=== PATIENT | female | born 1970 | race Caucasian/White ===

== ENCOUNTER 2019-04-03 06:51 | Day surgery (SDC) | payer OTHER ==
[2019-04-03 07:49] LABS: Specific Gravity 1.025 (1.005-1.030)
[2019-04-03] MEDS ORDERED: Ringers Lactate 1,000 ML IV ONE (07:51)
[2019-04-03] MEDS ORDERED: PROPOFOL 200 MG/20 ML VIAL IV ONE (08:00)
[2019-04-03] MEDS ORDERED: FENTANYL CITR 100 MCG/2 ML ONE (08:01)
[2019-04-03] MEDS ORDERED: MIDAZOLAM HCL 2 MG/2 ML INJ ONE (08:01)
[2019-04-03] MEDS ORDERED: LIDOCAINE 1% MPF 2 ML AMPULE ONE (08:04)
[2019-04-03] MEDS ORDERED: LIDOCAINE 1.5% W/EPI AMP 5 ML ONE (08:18)
[2019-04-03] MEDS ORDERED: KETOROLAC 30 MG/ML INJ ONE (09:01)
[2019-04-03] MEDS: MEPERIDINE HCL 50 MG/ML AMP ONE ×2 (09:08→09:19)
[2019-04-03] MEDS ORDERED: IBUPROFEN 200 MG TAB PO ONE (10:32)
[2019-04-03] MEDS ORDERED: IBUPROFEN 400 MG TAB ONE (10:32)
[2019-04-03] MEDS ORDERED: MEPERIDINE HCL 25 MG/0.5 ML ONE (11:18)
--- NOTE | 2019-04-03 19:11 | OP ---
Date of Procedure: 04/03/2019 Surgeon: Shilpa Noonan MD Hiv Cts Specialist: No assistants. Preoperative Diagnoses: Menorrhagia (AUB-O/A) and dysmenorrhea. Postoperative Diagnoses: Menorrhagia (AUB-O/A) and dysmenorrhea. Procedure Performed: Hysteroscopy with endometrial ablation using HTA. Anesthesia: General with LMA. Complications: No complications. Drains: No drains. Specimens: No specimens. Condition: Patient's condition is stable. Findings: The uterus had a large clot inside it. Once the clot was removed, there were no intracavi tary lesions. No cavity distortion. Both tubal ostia were visualized. Excellent ablation effect af ter the ablation was done and the cavity was rinsed out. Indications: Patient is a 48-year-old with control in place. had a vasectomy. She is a 5, para 3-0-2-3, presented with severe bleeding, heavy periods, and dysmenorrhea. She als o has superficial dyspareunia, but no etiology in the abdomen, mostly from atrophy. She does have stage 2 uterine prolapse, but asymptomatic; also rectocele, which is also asymptomatic. We did a transvaginal ultrasound, which did not show any adnexal masses. The lining was 8 mm. Hys teroscopy was performed as an outpatient and endometrial curettings were negative for hyperplasia, at ypia, or malignancy. So, we discussed about the options of this perimenopausal woman about Mirena IU D, ablation, hysterectomy. After discussing the benefits and risks of the procedures, and treatments , we decided on proceeding with the ablation. Bleeding, infection, injury to the uterus, recurrence of bleeding, 90% success at this time and 75% success long-term after 2 to 3 years. Description Of Procedure: She was consented and brought to the OR. Ancef 2 g were given. Patient w as taken back to the OR, placed in supine fashion on the operating table. After general anesthesia w as given, she was placed in a dorsal lithotomy position. Pelvic exam was performed. Uterus was foun d to be slightly enlarged about 8 week size. No adnexal masses were palpable. The vulva, vagina, an d perineum were prepped and draped in a sterile fashion. The anterior lip grasped with 2 Allis clamp s. Diagnostic hysteroscopy was performed with the HTA sheath that was primed. Without any dilation of the cervix, the uterine cavity was entered. The large clot was present. The scope was removed an d gently the clot was teased out with the help of a polyp forceps without carefully making sure there was no further dilation of the internal os. Then, the HTA was reintroduced and the tip of the scope placed in the center of the cavity. After th e cavity was completely rinsed out and free of clots, then the ablation cycle was started. Once the test cycle was done, there was no leak, then started the entire heating cycle, the 10 minutes ablatio n cycle and 1.5 minutes cooling cycles were conducted without any interruptions. Then, diagnostic hy steroscopy was performed to rinsed out the cavity. Then, made sure that the cavity had a good ablati on and at the end, scope removed. The Ray-Tecs packed in the posterior fornix were all removed. Ins trument, needle, and sponge counts were done and were correct at the end of the case. EBL was minima l. She will follow up with me in 3 weeks. JIMMY/ARIANE Voice ID: [id number] Report ID: [id number]
== END 2019-04-03 11:40 | disposition home or self-care (01) ==
LOC: OR 06:51
PROVIDERS: ATTEND Obstetrics & Gynecology
PROC: 0U5B8ZZ Destruction of Endometrium, Via Natural or Artificial Opening Endoscopic (ICD-10-PCS; principal; 2019-04-03 08:30)
DX: N92.1 Excessive and frequent menstruation with irregular cycle (principal); N94.6 Dysmenorrhea, unspecified; N81.2 Incomplete uterovaginal prolapse; N94.11 Superficial (introital) dyspareunia; I10 Essential (primary) hypertension; F33.2 Major depressive disorder, recurrent severe without psychotic features; Z79.899 Other long term (current) drug therapy
CPT/HCPCS: 81025; J2001; J2175; J2250; J2704; J3010

== ENCOUNTER 2020-08-25 10:05 | Day surgery (SDC) | payer OTHER ==
[2020-08-19 10:26] LABS: Absolute Lymphocytes (CBC) 1.1 K/uL (0.7-4.9); Basophils % 0.8 % (0-1.3); Hematocrit 41.5 % (36.0-45.0); Lymphocytes % 17.5 % (15.3-44.8); MPV 7.2 fL (7.6-11.3); RBC Red Blood Cell Count 4.59 M/uL (3.86-4.86)
[2020-08-19 11:12] LABS: Urine Appearance CLEAR; Urine Bilirubin NEGATIVE (NEG); Urine Blood NEGATIVE (NEG); Urine Color YELLOW; Urine Glucose NEGATIVE (NEG); Urine Protein NEGATIVE (NEG)
[2020-08-19 11:37] LABS: Urine Microscopic Reflex NO UMIC
[2020-08-25] MEDS ORDERED: Ringers Lactate 1,000 ML IV ONE ×5 (10:42→18:39)
[2020-08-25] MEDS ORDERED: CEFAZOLIN/SWI 1gm 1 GM/10 ML SYR ONE ×2 (10:42→12:28)
[2020-08-25] MEDS ORDERED: SCOPOLAMINE HYDROBROMIDE PATCH TD ONE (10:42)
[2020-08-25] MEDS ORDERED: CEFAZOLIN/SWI 2gm 2 GM/20 ML SYR ONE (10:42)
[2020-08-25] MEDS ORDERED: KETAMINE HCL 500 MG/5 ML VIAL ONE (11:45)
[2020-08-25] MEDS ORDERED: FENTANYL CITR 250 MCG/5 ML ONE (11:45)
[2020-08-25] MEDS ORDERED: MIDAZOLAM HCL 2 MG/2 ML INJ ONE ×2 (11:45→18:39)
[2020-08-25] MEDS ORDERED: LIDOCAINE 2% MPF 5 ML VIAL ONE (11:45)
[2020-08-25] MEDS ORDERED: ROCURONIUM 50 MG/5 ML VIAL IV ONE ×2 (11:45→15:41)
[2020-08-25] MEDS ORDERED: dexAMETHasone 10 MG/ML VIAL ONE (11:45)
[2020-08-25] MEDS ORDERED: propofoL 200 MG/20 ML VIAL IV ONE (11:45)
[2020-08-25] MEDS ORDERED: ONDANSETRON 4 MG/2 ML VIAL ONE ×2 (11:55→18:13)
[2020-08-25] MEDS ORDERED: VASOPRESSIN 20 UNIT/ML VIAL ONE ×2 (12:28→12:52)
[2020-08-25] MEDS ORDERED: NA CHLORIDE 0.9% 100 ML IV ONE (12:28)
[2020-08-25] MEDS ORDERED: BUPIVACAINE 0.25% PF 30 ML VIAL ONE (12:28)
[2020-08-25] MEDS ORDERED: GLYCOPYRROLATE 0.2 MG/ML SYR ONE ×2 (13:42→15:42)
[2020-08-25] MEDS ORDERED: HYDRALAZINE HCL 20 MG/ML VIAL ONE (14:11)
[2020-08-25] MEDS ORDERED: NEOSTIGMINE 1 MG/ML -5 ML ONE (15:43)
[2020-08-25] MEDS ORDERED: EPHEDRINE SULF 50 MG/ML VIAL ONE (16:28)
[2020-08-25] MEDS ORDERED: MORPHINE 10 MG/ML VIAL ONE (16:46)
[2020-08-25] MEDS ORDERED: KETOROLAC 30 MG/ML INJ ONE (17:49)
[2020-08-25] MEDS: HYDROMORPHONE HCL 1 MG/ML INJ ONE ×4 (18:00→18:21)
[2020-08-25] MEDS ORDERED: MEPERIDINE HCL 25 MG/ML SYR ONE ×2 (18:27→18:34)
[2020-08-25 19:18] VITALS: BP 139/81; TEMP 97.1
[2020-08-25] MEDS ORDERED: HYDROCODONE/APAP 5/325 MG TAB ONE (19:40)
[2020-08-25] MEDS ORDERED: IBUPROFEN 600 MG TAB PO ONE (19:46)
[2020-08-25] MEDS ORDERED: IBUPROFEN 200 MG TAB PO ONE (19:57)
[2020-08-25] MEDS ORDERED: IBUPROFEN 400 MG TAB ONE (19:57)
[2020-08-25] MEDS ORDERED: HYDROCODONE/APAP 5/325 MG TAB PO ONE (20:15)
[2020-08-25 20:46] VITALS: O2SAT 98
--- NOTE | 2020-09-26 00:30 | OP ---
Date of Procedure: 08/25/2020 Surgeon: Shilpa Noonan MD Program Engagement Director: Daly Munoz. Preoperative Diagnoses: Uterine prolapse, dyspareunia, rectocele stage II. Postoperative Diagnoses: Stage II posterior wall defect, incomplete uterovaginal prolapse, dyspareun ia, history of ablation, and menorrhagia. Procedures Performed: 1.Total laparoscopic hysterectomy, bilateral salpingo-oophorectomy. 2.Uterosacral ligament suspension, colpopexy and cystoscopy. 3.Rectocele repair and perineal body repair under the rectocele and (site-specific posterior wall re pair). Anesthesia: General endotracheal. Ebl: 100. Urine Output: 400. Findings: Pop-Q -2, -2, -4, 5, moderate 7, -1, 0, -4, retroflexed uterus, ablated cavity. Condition: Stable patient. Brief History And Physical: The patient is a 50-year-old with history of menorrhagia, underwent an a blation, complaining of dyspareunia with intercourse and vaginal bulge symptoms. On examination, fou nd to have incomplete uterovaginal prolapse, significant posterior wall defect followed by apical def ect, so discussed about all the benefits and risks, and options available. Transvaginal ultrasound w as performed. No evidence of any endometrial abnormality. After full evaluation, she was counseled on observation with Kegel and physical therapy, the use of pessary and surgical options. After under standing the benefits and risks of all the procedures and recovery, she wanted to proceed with hyster ectomy and prolapse repair. We discussed about either vaginal laparoscopic repairs and uterosacral s uspension was recommended in conjunction with the posterior repair. If this was not feasible, she wa s consented for a sacrospinous fixation with a posterior repair. Description Of Procedure: After informed consent was verified, she was taken back to OR. 2 g of Anc ef were given. She was placed in a dorsal lithotomy position. Pelvic exam was performed. Pop-Q as dictated above. Abdomen, vulva, vagina, and perineum prepped and draped in a sterile fashion. Arguelles placed to drain the bladder and attached for retrograde filling. A large VCare introduced. Attempt ed to be introduced into the uterus. This was difficult because of the ablated cavity. Then had to wait on incision of the manipulator, went down. Laparoscopically 1 cm infraumbilical incision was made with a scalpel using the open laparoscopy tech nique. Fascia was incised and tagged with 0 Vicryl. Peritoneum entered. S retractor was placed. H asson was introduced. After insufflation, site of entry was checked and it was unremarkable. Ten taylor prapubic, two 5 ports left and right lower quadrant were placed under direct vision after visualizati on of the sigmoid colon and visualization of the uterosacral distal aspects. The epiploicae of the b owel was threaded with 3-0 Monocryl and this was retracted with Malcolm-Alejandro needle in the left up per quadrant and held with a hemostat for retraction. This was to keep this out of the way in the op erative field. LigaSure was taken and both ureters were traced and the course was from the pelvic brim to the ureter ic tunnel and no distortion. The utero-ovarian ligament, mesosalpinx, round ligament were taken down . Broad ligament was opened up to raise the bladder flap. Posteriorly it was taken down to the leve l of the distal cuff. The uterosacral ligaments were well visualized. The right one was more promin ent than the left side. However, this was well visualized, so plan was to perform a uterosacral susp ension. Then went on the opposite side and took down in the similar fashion the utero-ovarian ligament, mesos alpinx, tube, round ligament, and anterior connected the bladder flap and posteriorly connected the p eritoneum. We skeletonized the broad ligament and exposed the vessels. Bladder was dissected inferi gen on the anterior vaginal wall, precervical fascia, and exposing the connective tissue. Then, wit h a monopolar, parallel cut was made between the cervix and the vessels, then the bipolar basket tip was used to cauterize these and taken down with the help of the LigaSure. Then, the cardinal ligamen ts were taken down with the help of the LigaSure as well. Opposite side similar dissection was perfo rmed and circumferential colpotomy with a monopolar hook blade and the specimen pulled out through th e vagina. The ovaries and tubes were taken with the help of the LigaSure and handed off for specimen . Thorough irrigation and suction was performed. The vaginal closure was done with the help of simple sutures at both ends and 3 [id number]-ir-izwxa in the center. 0 PDS sutures were used. Then once the ureters were visualized, the distal uterosacrals were visualized, at least 5 cm above t he insertion of the uterosacral. The uterosacral was picked up with the help of a 3-0 Monocryl sutur e just for retraction and then Clinton-Mustapha suture on C1 was taken and the uterosacral was sutured from i nside from medial to lateral, then from lateral to medial. Then, the suture was taken through the po sterior vaginal cuff connective tissue, which is rectovaginal septum and then through the anterior wa ll connective tissue. This was then held on a hemostat through the lateral port. The other suture w as taken slightly more proximal to this and then this was sutured medial to the suture that was place d first, which was placed immediately next to the angle. Both sutures were then tied down without any suture bridges. There was good apposition and the utero sacral was pulled up to the vaginal cuff. Then stay suture was taken out and 3-0 Monocryl was placed on the left uterosacral and once this was done, no evidence of any pooling of the ureters becuase I stayed proximal to the distal attachment. Similar Clinton-Mustapha sutures were placed, 1 in the distal part going to the lateral aspect of the cuff an d then the proximal one in the medial aspect both attaching to the anterior and posterior fascial lay ers. These were tied without suture bridges as well and there was excellent suspension and obliterat ion of the posterior cul-de-sac as well. Then cystoscopy was performed. After a 17-Estonian sheath, 30 degree lens, normal saline was placed after Arguelles was removed with excel lent jets of urine from both ureteric orifices. No evidence of any trauma or foreign body here. So, the cystoscope was removed and Arguelles was replaced. Gloves were changed and went back up laparoscopi anna. Thorough irrigation and suction were performed. All trocars were removed under direct vision and fascia and skin were injected with 0.25% Marcaine both the entry and exit for local anesthesia. The umbilicus fascial incision after desufflation was closed with the help of the tagged 0 Vicryl sut ures attached to each other and a simple 0 Vicryl suture at the fascia in the suprapubic area. All s kin incisions with interrupted 4-0 Vicryl and Steri-Strips placed in the epiploicae were released and there was no evidence of any bleeding or any trauma to the sigmoid wall. All skin incisions were cl osed. Then, I went down vaginally, left the Arguelles in place. Posterior vaginal wall was examined carefully. The site-specific defect was in the right lateral aspect and this was well visualized. This was al l palpated. Then a lillian-shaped skin incision was made in the vaginal epithelium in the distal tushar f after injecting dilute vasopressin on the perineal body as well as in the distal posterior wall. A lmost in the distal 2/3 injection was performed with the incision in the distal half. Vaginal epithe lium, sub epithelium was traced off the underlying connective tissue leaving as much as possible and perineal body was also well cleaned up and the vaginal epithelial flaps were raised to perform dissec tion off the rectovaginal septum almost above the level of the epithelial incision on the central ape x and then posterior enterocele was seen to some extent. This was closed with a pursestring 3-0 [place] cryl suture. Then, the site-specific defect was repaired with the help of a 2-0 PDS in a continuous running fashion bringing in and reattaching the shredded edges together, then coming down to the left of the perineal body. The perineal body was reconstructed with the help of 2-0 PDS as well going fr om side to side then bringing the body together. The other 2-0 Vicryl interrupted suture was placed distally. Once this was done rectovaginally, this was confirmed. Gloves were changed and then the 2 -0 PDS suture was run up on the left lateral aspect and tied here to bury this knot. Then, the epith elial edges were brought together with the help of Karey to make sure that there was good patency of the canal without any narrowing. Once this was done, slightly trimmed edges were then sutured togeth er with the help of a 2-0 Vicryl in a continuous running horizontal mattress fashion. The perineum w as also sutured with a 3-0 Vicryl in a subcutaneous and subcuticular fashion. There was excellent re construction without any narrowing or suturing the levators. Vaginal packing was done. Rectal exam was negative. Arguelles was left in place. Instrument, needle, a nd sponge counts were correct at the end of the case. The patient tolerated the procedure well and she was recovered from anesthesia and taken to the PACU in stable condition. JIMMY/ARIANE Voice ID: [id number] Report ID: [id number]
== END 2020-08-25 20:43 | disposition home or self-care (01) ==
LOC: OR 10:05
PROVIDERS: ATTEND Obstetrics & Gynecology
PROC: 0UT24ZZ Resection of Bilateral Ovaries, Percutaneous Endoscopic Approach (ICD-10-PCS; 2020-08-25)
PROC: 0UT74ZZ Resection of Bilateral Fallopian Tubes, Percutaneous Endoscopic Approach (ICD-10-PCS; 2020-08-25)
PROC: 0USG4ZZ Reposition Vagina, Percutaneous Endoscopic Approach (ICD-10-PCS; 2020-08-25)
PROC: 0JQC0ZZ Repair Pelvic Region Subcutaneous Tissue and Fascia, Open Approach (ICD-10-PCS; 2020-08-25)
PROC: 0WQNXZZ Repair Female Perineum, External Approach (ICD-10-PCS; 2020-08-25)
PROC: 0UT94ZZ Resection of Uterus, Percutaneous Endoscopic Approach (ICD-10-PCS; principal; 2020-08-25 11:30)
DX: N81.2 Incomplete uterovaginal prolapse (principal); N95.1 Menopausal and female climacteric states; N92.1 Excessive and frequent menstruation with irregular cycle; N39.3 Stress incontinence (female) (male); F32.9 Major depressive disorder, single episode, unspecified; D63.8 Anemia in other chronic diseases classified elsewhere; Z98.84 Bariatric surgery status; Z20.828 Contact with and (suspected) exposure to other viral communicable diseases; I10 Essential (primary) hypertension
CPT/HCPCS: 58571; 57425; 85025; 36415; 86900; 86850; 81025; 86901; 88305; 81003; 57250; U0002; J0360; J2704; J2250 ×2; J3010; J1100; J2175 ×2; J1170 ×2; J2710; J0690 ×2; J7120 ×4; J2405 ×2; 88307

== ENCOUNTER 2021-06-09 08:35 | Day surgery (SDC) | payer OTHER ==
[2021-06-04 16:36] LABS: Absolute Lymphocytes (CBC) 1.2 K/uL (0.7-4.9); Basophils % 0.6 % (0-1.3); Hematocrit 38.5 % (36.0-45.0); Lymphocytes % 15.6 % (15.3-44.8); RBC Red Blood Cell Count 4.36 M/uL (3.86-4.86)
[2021-06-04 17:16] LABS: Potassium 3.9 mmol/L (3.5-5.1)
[2021-06-09 08:55] LABS: Specific Gravity 1.015 (1.005-1.030)
[2021-06-09] MEDS ORDERED: Ringers Lactate 1,000 ML IV ONE ×2 (09:17→14:09)
[2021-06-09] MEDS ORDERED: CEFAZOLIN 2 GM IN 0.9% NACL 2 GM/100 ML BAG ONE (09:47)
[2021-06-09] MEDS ORDERED: FENTANYL CITR 100 MCG/2 ML ONE ×3 (12:43→14:31)
[2021-06-09] MEDS ORDERED: propofoL 200 MG/20 ML VIAL IV ONE (12:43)
[2021-06-09] MEDS ORDERED: ROCURONIUM 50 MG/5 ML VIAL IV ONE ×2 (12:44→14:06)
[2021-06-09] MEDS ORDERED: MIDAZOLAM HCL 2 MG/2 ML INJ ONE (12:44)
[2021-06-09] MEDS ORDERED: LIDOCAINE 1% MPF 5 ML VIAL ONE (12:44)
[2021-06-09] MEDS ORDERED: LIDOCAINE JELLY 2%- 5 ML TUBE ONE (13:01)
[2021-06-09] MEDS ORDERED: BUPIVACAINE 0.25% PF 30 ML VIAL ONE (13:19)
[2021-06-09] MEDS ORDERED: dexAMETHasone 10 MG/ML VIAL ONE (13:31)
[2021-06-09] MEDS ORDERED: GLYCOPYRROLATE 0.2 MG/ML SYR ONE (13:31)
[2021-06-09] MEDS ORDERED: KETOROLAC 30 MG/ML INJ ONE (13:31)
--- NOTE | 2021-06-09 14:04 | P.OP ---
Preoperative diagnosis: Recurrent Ventral Incisional Hernia Postoperative diagnosis: Recurrent Ventral Incisional Hernia Primary procedure: Laparoscopic Ventral Hernia Repair with Mesh Secondary procedure: Laparoscopic Adhesiolysis > 1 hour Anesthesia: GETA Local Estimated blood loss: <10cc Specimen: none Findings: 14cm x 7 cm Recurrent Ventral Incisional Hernia Complications: None Implants: Bard Ventralite Mesh with Echo position 20cm x 15cm Transferred to: Recovery Room Condition: Good
[2021-06-09] MEDS ORDERED: ONDANSETRON 4 MG/2 ML VIAL ONE (14:06)
[2021-06-09] MEDS ORDERED: NEOSTIGMINE 1 MG/ML -5 ML ONE (14:06)
[2021-06-09] MEDS: HYDROMORPHONE HCL 1 MG/ML INJ ONE ×2 (14:24→14:31)
--- NOTE | 2021-06-09 14:40 | OP ---
Date of Procedure: 06/09/2021 Surgeon: Brad Singer MD, Preoperative Diagnosis: Recurrent ventral incisional hernia. Postoperative Diagnosis: Recurrent ventral incisional hernia. Procedures Performed: 1.Laparoscopic ventral hernia repair with mesh. 2.Laparoscopic adhesiolysis greater than 1 hour. Anesthesia: General endotracheal plus local with 0.25% Marcaine without epinephrine. Estimated Blood Loss: Less than 10 mL. Specimen: None. Findings: A 14 cm x 7 cm recurrent ventral incisional hernia with a [place]er-cheese appearance to the a bdominal wall. The patient appeared to have a primary repair before in the past with sutures still v isible in the midline surgical field. Complications: None. Implants: Bard Ventralight mesh with Echo Positioning system approximately 20 cm oval by 15 cm mesh utilized. Disposition: The patient was transferred to recovery room in good condition. Procedure In Detail: After informed consent was obtained, the patient was brought to the operating r oom, prepped and draped in the usual sterile fashion after adequate anesthesia was achieved. The are a on the left upper quadrant was anesthetized with 0.25% Marcaine, sharply incised, and a 5 mm 0-degr ee optical trocar was introduced in the abdomen without evidence of complication. Insufflation was o btained to 15 mmHg at this time. There was no injury vital structures upon entry into the abdomen. The abdomen was inspected at this point and found significant intraabdominal adhesions and significan t herniation with incarceration of omental fat into the midline hernia defects which were multiple, S wiss-cheese appearance in the midline. Additional trocar site was placed in left lower quadrant. Th is was similarly anesthetized and sharply incised. A 5 mm trocar was placed under direct visualizati on without evidence of complication. The left upper quadrant was then up-sized to a [address] visualization without evidence of complication. I then used a combination of blunt and extraabdom inal pressure as well as LigaSure device to return the omental fat to the normal anatomic position. This adhesiolysis took approximately 1 hour to mobilize all of the omentum attachments from the anter ior abdominal wall and from the hernia sac itself, which were incarcerated at this point. After the intraabdominal contents returned to the normal anatomic position, the area was inspected and the abdo karlos wall found to have a [place]er-cheese appearance approximately 14 cm near the midline by approximat bert 4-6 cm laterally. At this point, I sized the mesh appropriately and placed on the back table, wh ich was found to be a Bard Ventralight mesh with Echo Positioning system of approximately 20 cm oval. This was prepared. At this point, I brought the Endo Stitch with V-Loc and ran 2 V-Loc sutures to close the midline defect in a running fashion with the V-Loc suture with good apposition of the abdom inal wall. At this point, I then brought the mesh into the abdominal wall and centralized over the a bdominal cavity over the midpoint of the hernia defect. At this point, the balloon deployment system was utilized to open the mesh in its entirety. It was aligned properly in the long axis and then I secured to the anterior abdominal wall using absorbable fixation tack system. I then removed the bal loon. System was found to be intact on the back table. I then placed a double crown of absorbable f ixation tacks to the anterior abdominal wall and then secured the remaining mesh to the anterior abdo karlos wall with remaining tacks. Approximately 90 tacks were used to secure to the anterior bowel wa ll with good apposition of the mesh to the abdominal wall. At this point, I then inspected the abdom en. There were no hemostatic maneuvers required at this point. I then closed the left upper quadran t 12 mm defect using a Malcolm-Alejandro suture passer with 0 Vicryl in interrupted fashion with good a pproximation tissues. The abdomen was completely desufflated under direct visualization without evid ence of complication. Remaining trocars were removed. All skin incisions were copiously irrigated a nd closed with 4-0 Monocryl in a running fashion. Dermabond placed over top. The patient tolerated the procedure well without evidence of complication and transferred to PACU in good condition. All counts were correct at the end of the case. TK/MODL Voice ID: [id number] Report ID: [id number]
[2021-06-09] MEDS: MIDAZOLAM HCL 2 MG/2 ML INJ ONE ×2 (14:43→14:49)
[2021-06-09] MEDS: FENTANYL CITR 100 MCG/2 ML ONE ×2 (14:57→15:03)
[2021-06-09] MEDS ORDERED: HYDROMORPHONE HCL 1 MG/ML INJ ONE (15:06)
[2021-06-09] MEDS ORDERED: PROMETHAZINE INJ 25 MG/ML AMP ONE (15:38)
[2021-06-09 16:32] VITALS: O2SAT 100
[2021-06-09] MEDS ORDERED: HYDROCODONE/APAP 7.5/325 MG TAB ONE ×2 (16:40→17:51)
[2021-06-09] MEDS ORDERED: DIPHENHYDRAMINE 50 MG/ML VIAL ONE (16:40)
[2021-06-09 17:38] VITALS: TEMP 98.1
[2021-06-09 17:40] VITALS: BP 147/54
== END 2021-06-09 17:40 | disposition home or self-care (01) ==
LOC: OR 08:35
PROVIDERS: ATTEND Surgery
PROC: 0DNU4ZZ Release Omentum, Percutaneous Endoscopic Approach (ICD-10-PCS; 2021-06-09)
PROC: 0WUF4JZ Supplement Abdominal Wall with Synthetic Substitute, Percutaneous Endoscopic Approach (ICD-10-PCS; principal; 2021-06-09 10:15)
DX: K43.2 Incisional hernia without obstruction or gangrene (principal); Z20.822 Contact with and (suspected) exposure to COVID-19
CPT/HCPCS: 85025; 80048; 36415; 81025; 49652; 49329; U0003; J2704; J2550; J1200; J2250 ×2; J3010 ×4; J1100; J1170 ×2; J2710; J0690; J7120 ×2; J2405

== ENCOUNTER 2024-03-20 00:53 | Emergency (ER) | payer OTHER ==
--- OUTSIDE RECORDS SUMMARY | 2024-03-20 00:56 | XMS REPORT | Continuity of Care Document ---
Author Name Unknown Address [address] [facility] [address] [place] [address] [facility] Address [address] [facility] [address] [place] [address] Care Team Providers Care Machine Shop Supervisor Name Role Phone [email or web address] Attending Clinician ANNA Maher Attending Clinician FLORES Chavira Attending Clinician KENYA Angulo Attending Clinician Unabraulio ilsharita [email or web address] Admitting Clinician Dorinda hubbard Payers Payer Name Policy Type Policy Number Effective Date Expirati on Date Source [employer] 2 [id number] 2022 00:00:00 Problems Condition Name Condition Details Condition Category Status Onset Date Resolution Date Last Treatment Date Treating Clinician Comments Source Primary hypertensi on Primary hypertensi on Disease Active 11-02 00:00: 00 Ginger amador Well adult exam Well adult exam Disease Active 11-02 00:00: 00 Ginger amador Depression with anxiety Depression with anxiety Disease Active 11-02 00:00: 00 Overview: Formattin g of this note might be different from the original. PSYC Dr. Armida amador Primary insomnia Primary insomnia Disease Active 11-02 00:00: 00 Overview: Formattin g of this note might be different from the original. PSYC Dr. Armida Ginger Seybold - Externa l Class 3 severe obesity due to excess calories with serious comorbidit y and body mass index (BMI) of 40.0 to 44.9 in adult Class 3 severe obesity due to excess calories with serious comorbidit y and body mass index (BMI) of 40.0 to 44.9 in adult Disease Active 11-02 00:00: 00 Ginger amador History of gastric bypass History of gastric bypass Disease Active 09-11 00:00: 00 Ginger amador Social History Social Habit Start Date Stop Date Quantity Comments Source History of tobacco use Smoker Ginger Bhatti Alcohol intake 2022-11-02 00:00:00 2022-11-02 00:00:00 Ex-drinker (finding) Ginger Bhatti Education 2022-11-02 00:00:00 2022-11-02 00:00:00 13 Ginger Bhatti Cigarettes smoked current (pack per day) - Reported 2022-11-02 00:00:00 2022-11-02 00:00:00 Ginger Bhatti Cigarette pack-years 2022-11-02 00:00:00 2022-11-02 00:00:00 iGnger Bhatti Tobacco use and exposure 2022-11-02 00:00:00 2022-11-02 00:00:00 Smokeless tobacco non-user Ginger Bhatti Sex Ass[birth year] At 1970 00:00:00 1970 00:00:00 Ginger Bhatti Smoking Status Start Date Stop Date Source Ex-smoker 2022-11-02 00:00:00 2022-11-02 00:00:00 Noam Fung External Medications Ordered Medication Name Filled Medication Name Start Date Stop Date Current Medication? Ordering Clinician Indication Dosage Frequency Signature (SIG) Comments Components Source Methotrexat e 7.5 MG/0.3ML subcutaneou s Solution Prefilled Syringe 11-02 14:49: 49 11-02 00:00 :00 No Inject into the skin Ginger amador Lamotrigine 100 MG oral Tablet 11-02 14:45: 13 Yes 100mg Take 100 mg by mouth daily Ginger amador Sertraline HCl 50 MG oral Tablet 11-02 14:45: 13 Yes 50mg Take 50 mg by mouth daily Ginger amador Bupropion HCL XL 300 MG OR TB24 11-02 14:45: 13 Yes 300mg Take 300 mg by mouth daily Ginger amador Zolpidem Tartrate 10 MG oral Tablet 11-02 14:45: 13 Yes 10mg QD Take 10 mg by mouth nightly as needed Ginger amador Desvenlafax ine Succinate ER 25 MG oral TABLET SR 24 HR 11-02 14:45: 13 Yes 1{tbl} Take 1 tablet by mouth daily Ginger amador Folic Acid 20 MG oral Capsule 11-02 14:45: 13 Yes 1{capsu le} Take 1 capsule by mouth daily Ginger amador Losartan Potassium (COZAAR) 100 MG oral Tablet 11-02 00:00: 00 Yes [id number] 100mg Take 1 tablet (100 mg total) by mouth daily Ginger amador Losartan Potassium (COZAAR) 100 MG oral Tablet 10-25 00:00: 00 11-02 00:00 :00 No [id number] 100mg Take 1 tablet (100 mg total) by mouth daily Ginger amador Vital Signs Vital Name Observation Time Observation Value Comments S ource Systolic blood pressure 2022-11-02 20:40:00 132 mm[Hg] Ginger null - External Diastolic blood pressure 2022-11-02 20:40:00 81 mm[Hg] Ginger null - External Heart rate 2022-11-02 20:40:00 79 /min Jam Centeno - External Body temperature 2022-11-02 20:40:00 36.89 Lizet Ginger Centeno - External Respiratory rate 2022-11-02 20:40:00 14 /min Ginger Centeno - External Body height 2022-11-02 20:40:00 160 cm Sarah Centeno - External Body weight 2022-11-02 20:40:00 110.768 kg Sarah galindo Seybold - External BMI 2022-11-02 20:40:00 43.26 kg/m2 Sarah ey Seybold - External Oxygen saturation in Arterial blood by Pulse oximetry 2022-11-02 20:40:00 99 /min Ginger Almanza ld - External Encounters Start Date/Time End Date/Time Encounter Type Admission Type Attending [facility] Care Department Encounter ID Source 2023-07-11 00:00:00 2023-07-11 00:00:00 Outpatient [email or web address] [email or web address]_S [facility] [id number] [facility] 2023-05-02 10:00:00 2023-05-02 10:00:00 [id number]:00 2023-01-30 00:00:00 Outpatient ANNA ROTH [id number] [facility] rashel 2022-12-30 00:00:00 2022-12-30 00:00:00 Outpatient ANNA ROTH [id number] [facility] 2022-11-10 00:00:00 2022-11-10 00:00:00 Outpatient ANNA ROTH [id number] [facility] 2022-11-09 00:00:00 2022-11-09 00:00:00 Outpatient ANNA ROTH [id number] [facility] rashel 2022-11-03 00:00:00 2022-11-03 00:00:00 Outpatient ANNA ROTH [id number] [facility] rashel 2022-11-02 14:45:00 2022-11-02 14:45:00 Outpatient ANNA ROTH [id number] [facility] Jaimerashel 2022-10-25 10:45:00 2022-10-25 10:45:00 Outpatient FLORES BONILLA [id number] [facility] Centeno 2022-10-24 00:00:00 2022-10-24 00:00:00 Outpatient KENYA STRICKLAND [id number] [facility]
[2024-03-20] MEDS ORDERED: LIDOCAINE VISCOUS 2% 10ML ORAL SOLN ONE (01:23)
--- NOTE | 2024-03-20 02:09 | ER ---
Nurse's Notes [facility] Name: Valentina Barton Age: 53 yrs Sex: Female : 1970 Arrival Date: 03/20/2024 Time: 00:53 Bed 17 Private MD: Diagnosis: Foreign body (insect) in the right ear canal, removal by physician Presentation: 03/20 01:31 Chief complaint: Patient states: have a bug in ear. Coronavirus screen: Client denies vc1 travel out of the [place] in the last 14 days. At this time, the client does not indicate any symptoms associated with coronavirus-19. Ebola Screen: Patient negative for fever greater than or equal to 101.5 degrees Fahrenheit, and additional compatible Ebola Virus Disease symptoms Patient denies exposure to infectious person. Patient denies travel to an Ebola-affected area in the 21 days before illness onset. No symptoms or risks identified at this time. Initial Sepsis Screen: Does the patient meet any 2 criteria? No. Patient's initial sepsis screen is negative. Does the patient have a suspected source of infection? No. Patient's initial sepsis screen is negative. Risk Assessment: Do you want to hurt yourself or someone else? Patient reports no desire to harm self or others. Onset of symptoms was March 20, 2024. 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 - Infectious Disease History:: Denies. - Social history:: Smoking status: Patient denies any tobacco usage or history of. Screenin:44 [facility] ED Fall Risk Assessment (Adult) History of falling in the last 3 months, vc1 including since admission No falls in past 3 months (0 pts) Confusion or Disorientation No (0 pts) Intoxicated or Sedated No (0 pts) Impaired Gait No (0 pts) Mobility Assist Device Used No (0 pt) Altered Elimination No (0 pt) Score/Fall Risk Level 0 - 2 = Low Risk Oriented to surroundings, Maintained a safe environment, Educated pt \T\ family on fall prevention, incl call for assistance when getting out of bed. Abuse screen: Denies threats or abuse. Nutritional screening: No deficits noted. Tuberculosis screening: No symptoms or risk factors identified. Assessment: 02:04 General: Appears uncomfortable, Behavior is calm, cooperative, appropriate for age. cp4 Pain: Denies pain. EENT: Reports bug in ear.. Vital Signs: 01:31 BP 177 / 76; Pulse 105; Resp 36; Pulse Ox 99% ; Pain 10/10; vc1 02:18 BP 139 / 68; Pulse 80; Resp 18; Pulse Ox 98% ; cp4 01:31 Pain Scale: Adult vc1 ED Course: 00:56 Patient arrived in ED. rg4 01:21 Lei Medellin MD is Attending Physician. sp3 01:26 Kacie Gustafson is Primary Nurse. cp4 01:34 Triage completed. vc1 02:04 Bed in low position. Call light in reach. Side rails up X 1. Provided Education on: cp4 foreign body in ear.. 02:04 No provider procedures requiring assistance completed. Patient did not have IV access cp4 during this emergency room visit. 02:20 Arm band placed on right wrist. Patient placed in waiting room. cp4 Administered Medications: 01:26 Drug: Viscous Lidocaine Mucous Membrane Liquid (4 %) 10 ml Mucous Membrane once; In cp4 affected ear canal Route: Mucous Membrane; Medication: 02:04 VIS not applicable for this client. cp4 Outcome: 02:09 Discharge ordered by . sp3 02:19 Discharged to home ambulatory, cp4 02:19 Condition: stable 02:19 Discharge instructions given to patient, Instructed on discharge instructions, follow up and referral plans. medication usage, Demonstrated understanding of instructions, follow-up care, medications, Prescriptions given X 1, 02:20 Patient left the ED. cp4 Signatures: Magui Barrientos rg4 Lei Medellin MD MD sp3 Marcie Kerns RN RN vc1 Kacie Gustafson cp4
--- NOTE | 2024-03-20 02:10 | EDPHYS ---
Physician Documentation [facility] Name: Valentina Barton Age: 53 yrs Sex: Female : 1970 Arrival Date: 03/20/2024 Time: 00:53 Bed 17 Private MD: ED Physician Lei Medellin HPI: 03/20 01:35 This 53 yrs old Female presents to ER via Ambulatory with complaints of Foreign Body In sp3 Ear. 01:35 53-year-old female with no significant past medical history presents with probable sp3 insect in right auditory canal that occurred just prior to arrival and awoke her from sleep. No prior history of any medical process in the right ear. Patient feels like the insect is alive. ROS negative for fever, head injury, significant pain, discharge, or any other signs or symptoms on ROS at this time.. 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 - Infectious Disease History:: Denies. - Social history:: Smoking status: Patient denies any tobacco usage or history of. ROS: 01:36 Constitutional: Negative for fever, chills, and weight loss, Eyes: Negative for injury, sp3 pain, redness, and discharge, Neck: Negative for injury, pain, and swelling, Cardiovascular: Negative for chest pain, palpitations, and edema, Respiratory: Negative for shortness of breath, cough, wheezing, and pleuritic chest pain, Abdomen/GI: Negative for abdominal pain, nausea, vomiting, diarrhea, and constipation, Back: Negative for injury and pain, MS/Extremity: Negative for injury and deformity, Skin: Negative for injury, rash, and discoloration, Neuro: Negative for headache, weakness, numbness, tingling, and seizure, Psych: Negative for depression, anxiety, suicide ideation, homicidal ideation, and hallucinations, Allergy/Immunology: Negative for hives, rash, and allergies, Endocrine: Negative for neck swelling, polydipsia, polyuria, polyphagia, and marked weight changes, Hematologic/Lymphatic: Negative for swollen nodes, abnormal bleeding, and unusual bruising, 01:36 All other systems are negative, Exam: 01:36 Constitutional: This is a well developed, well nourished patient who is awake, alert, sp3 and in no acute distress. Head/Face: Normocephalic, atraumatic. Eyes: Pupils equal round and reactive to light, extra-ocular motions intact. Lids and lashes normal. Conjunctiva and sclera are non-icteric and not injected. Cornea within normal limits. Periorbital areas with no swelling, redness, or edema. Neck: Trachea midline, no thyromegaly or masses palpated, and no cervical lymphadenopathy. Supple, full range of motion without nuchal rigidity, or vertebral point tenderness. No Meningismus. Chest/axilla: Normal chest wall appearance and motion. Nontender with no deformity. No lesions are appreciated. Cardiovascular: Regular rate and rhythm with a normal S1 and S2. No gallops, murmurs, or rubs. Normal PMI, no JVD. No pulse deficits. Respiratory: Lungs have equal breath sounds bilaterally, clear to auscultation and percussion. No rales, rhonchi or wheezes noted. No increased work of breathing, no retractions or nasal flaring. Abdomen/GI: Soft, non-tender, with normal bowel sounds. No distension or tympany. No guarding or rebound. No evidence of tenderness throughout. Back: No spinal tenderness. No costovertebral tenderness. Full range of motion. 01:36 ENT: Ear canal(s): Limited visualization of right auditory canal due to patient distress and anxiousness. Discussed lidocaine applied to the right ear canal to fill it while she is on her left lateral side., Vital Signs: 01:31 BP 177 / 76; Pulse 105; Resp 36; Pulse Ox 99% ; Pain 10/10; vc1 02:18 BP 139 / 68; Pulse 80; Resp 18; Pulse Ox 98% ; cp4 01:31 Pain Scale: Adult vc1 Procedures: 02:08 Foreign Body Removal: Foreign body consisting of large insect removed with irrigation sp3 and Karey forceps. Post irrigation ear canal is clean. Patient tolerated procedure well.. MDM: 01:22 Patient medically screened. sp3 01:37 Data reviewed: vital signs, nurses notes. ED course: 53-year-old female with probable sp3 insect in right auditory canal. Discussed lidocaine in place to stop insect movement. We will flush it out after approximately 15 to 20 minutes.. 03/20 01:28 Order name: [place]. Order: Irrigation setup, kidney bowl, large angiocath, large syringe, sp3 room temp tap water; Complete Time: 02:04 Administered Medications: 01:26 Drug: Viscous Lidocaine Mucous Membrane Liquid (4 %) 10 ml Mucous Membrane once; In cp4 affected ear canal Route: Mucous Membrane; Disposition Summary: 03/20/24 02:09 Discharge Ordered Notes: Location: Home sp3 Condition: Stable sp3 Diagnosis - Foreign body (insect) in the right ear canal, removal by physician sp3 Followup: sp3 - With: Private Physician - When: Upon discharge from the Emergency Department - Reason: Continuance of care Discharge Instructions: - Discharge Summary Sheet sp3 - Ear Foreign Body sp3 Forms: - Medication Reconciliation Form sp3 - Antibiotic Education sp3 - Prescription Opioid Use sp3 - Patient Portal Instructions sp3 - Leadership Thank You Letter sp3 Prescriptions: - Cipro HC 0.2-1 % Otic Drops - instill 3 drops OTIC route every 12 hours for 7 days; 10 milliliter; Refills: sp3 0, Product Selection Permitted Signatures: Lei Medellin MD MD sp3 Marcie Kerns RN RN vc1 Kacie Gustafson cp4
[2024-03-20 04:43] VITALS: BP 139/68; O2SAT 98
== END 2024-03-20 02:20 | disposition home or self-care (01) ==
LOC: ER 00:53
PROC: 09C3XZZ Extirpation of Matter from Right External Auditory Canal, External Approach (ICD-10-PCS; principal; 2024-03-20)
DX: T16.1XXA Foreign body in right ear, initial encounter (principal)
CPT/HCPCS: 99283